=== PATIENT | female | born 1995 | race Caucasian/White ===

== ENCOUNTER 2020-03-04 11:14 | Emergency (ER) | payer MEDICAID ==
[~2020-03-04] VITALS: Ht 160 cm; Wt 96.2 kg
[2020-03-04 11:14] VITALS: BP_SYST 125
--- NOTE | 2020-03-04 11:14 | NUR ---
BROUGHT BACK TO BED #7 AND TRIAGED, REPORT GIVEN TO ELLA
--- NOTE | 2020-03-04 11:25 | NUR ---
Patient presented to ER C/O nose pain & swelling. Patient A&Ox4, skin pink & warm, left lateral nose swelling, pain /, denies respiratory difficulty, denies N/V/D. Patient states she had a nose injury x1 wek ago from pet dog, was seen at 02/26/2020. Per "nose not broken".
--- NOTE | 2020-03-04 11:35 | NUR ---
ER Dr. Forde at bedside examining patient.
[2020-03-04 12:00] VITALS: BP_SYST 128
--- NOTE | 2020-03-04 12:00 | NUR ---
Patient given written and verbal discharge instructions and verbalizes understanding. ER MD discussed with patient the results and treatment provided. Patient in stable condition. ID arm band removed. No Rx given. Patient educated on pain management and to follow up with PMD. Pain Scale 3/10. Opportunity for questions provided and answered. Medication side effect fact sheet provided.
== END 2020-03-04 12:00 | disposition home or self-care (01) ==
LOC: SED 11:14
DX: S00.33XA Contusion of nose, initial encounter (principal); W22.8XXA Striking against or struck by other objects, initial encounter; Y93.89 Activity, other specified; Y92.89 Other specified places as the place of occurrence of the external cause; Y99.8 Other external cause status
CPT/HCPCS: 99281